=== PATIENT | female | born 1955 ===

== ENCOUNTER 2016-06-14 12:30 | Emergency (ER) | payer MEDICAID ==
[2016-06-14 12:30] VITALS: BMI 31.9
--- NOTE | 2016-06-14 13:39 | C.PDOC ---
History Of Present Illness Patient is a 60 y/o female, whose PMHx includes pancreatitis, recurrent pleural effusion, and depression, that presents to the ED for evaluation of occipital headache and right sided neck pain for the past 3 days. Pt states her pain is worse with head movement in either direction. Notes taking Motrin yesterday with no relief. Pt notes having similar symptoms in the past, and had MRI done 1 year ago showing abnormality, but no treatment was necessary at the time. Pt also reports few episodes of anterior chest pain that last for short duration. Otherwise, denies any fever, chills, nausea, vomiting, vision change, or any other associated symptoms at this time. Time Seen by Provider: 06/14/16 12:56 Chief Complaint (Nursing): Chest Pain History Per: Patient History/Exam Limitations: no limitations Onset/Duration Of Symptoms: Days (3) Current Symptoms Are (Timing): Still Present Quality: Aching, "Pain" Preceeding Symptoms: None. denies: Visual Disturbances Associated Symptoms: denies: Photophobia, Blurred Vision, Nausea, Vomiting, Extremity Weakness Recent travel outside of the [place]: No Additional History Per: Patient Past Medical History Reviewed: Historical Data, Nursing Documentation, Vital Signs Vital Signs: Last Vital Signs Temp 97.7 F 06/14/16 16:45 Pulse 77 06/14/16 16:45 Resp 16 06/14/16 16:45 BP 106/64 06/14/16 16:45 Pulse Ox 99 06/14/16 16:45 - Medical History PMH: Anxiety, Bronchitis, Depression, Gastritis, Gall Bladder Disease, Pancreatitis, Pneumonia (fluid in lungs removed 01/05), Pneumothorax Surgical History: Appendectomy, Cholecystectomy - [facility] Procedures CHOLECYSTECTOMY (12/27/13) FIBER-OPTIC BRONCHOSCOPY (01/04/14) INJECT/INFUSE ELECTROLYT (04/29/12) INJECT/INFUSE NEC (04/29/12) INSERT INTERCOSTAL CATH (01/04/14) INTRAOPER CHOLANGIOGRAM (12/27/13) MAGNETIC RESONANCE IMAGING OF BRAIN AND BRAIN STEM (01/15/13) NEBULIZER THERAPY (12/12/13) THORACENTESIS (01/04/14) THORACOSCOPIC DRAINAGE OF PLEURAL CAVITY (01/04/14) Family History: States: Stroke (Mother) - Social History Hx Tobacco Use: No Hx Alcohol Use: No Hx Substance Use: No Review Of Systems Except As Marked, All Systems Reviewed And Found Negative. Constitutional: Negative for: Fever, Chills Eyes: Negative for: Vision Change Cardiovascular: Positive for: Chest Pain. Negative for: Palpitations, Edema, Light Headedness Respiratory: Negative for: Cough, Shortness of Breath Gastrointestinal: Negative for: Nausea, Vomiting Musculoskeletal: Positive for: Neck Pain (right side). Negative for: Back Pain Neurological: Positive for: Headache. Negative for: Weakness, Numbness, Dizziness Physical Exam - Physical Exam Appears: Non-toxic, Other (In emotional distress) Skin: Normal Color, Warm, Dry Head: Atraumatic, Normacephalic Eye(s): bilateral: Normal Inspection, EOMI Neck: Normal ROM, No Midline Cervical Tenderness, Paracervical Tenderness (right ), Supple Chest: Symmetrical, No Tenderness Cardiovascular: Rhythm Regular, No Murmur Respiratory: Normal Breath Sounds, No Accessory Muscle Use, No Rales, No Rhonchi , No Wheezing Back: No Vertebral Tenderness, Muscle Spasm (right trapezius) Extremity: Normal ROM Neurological/Psych: Oriented x3, Normal Speech, Normal Cognition ED Course And Treatment O2 Sat by Pulse Oximetry: 98 (on RA) Pulse Ox Interpretation: Normal - Other Rad cspine X-Ray: Interpreted by Me (unremarkable) - CT Scan/US Head CT Other Rad Studies (CT/US): Read By Radiologist, Radiology Report Reviewed CT/US Interpretation: FINDINGS: HEMORRHAGE: No intracranial hemorrhage. BRAIN : No mass effect or edema. No evidence of large acute infarct. Mild generalized volume loss with more localized bifrontal cortical atrophic changes. Mild vascular calcifications are present suspect small arachnoid cyst right middle cranial fossa. VENTRICLES: Unremarkable. No hydrocephalus. CALVARIUM: Unremarkable. PARANASAL SINUSES: Unremarkable as visualized. No significant inflammatory changes. MASTOID AIR CELLS: Unremarkable as visualized. No inflammatory changes. OTHER FINDINGS: None. IMPRESSION: No acute intracranial hemorrhage. Suspect small arachnoid cyst right middle cranial fossa Progress Note: Head CT, EKG, CXR, and cervical spine x-ray ordered and reviewed. Patient was treated with Ativan IVP, and Toraol IM. Medical Decision Making Medical Decision Making: Post IV meds pt feeling 75% better anxious about pain returning Additionally treated with firocet Unremarkable testing results discussed with pt and SO No indication of SAH Plan dc home firocet Disposition - Disposition Referrals: Stan Chinchilla MD [Staff Provider] - Disposition: HOME/ ROUTINE Disposition Time: 16:18 Condition: GOOD Prescriptions: Acetaminophen/Butalbital/Caf [Fioricet] 1 tab PO TID #20 tab Instructions: Acute Headache (ED) - Clinical Impression Clinical Impression: Headache - Scribe Statement The provider has reviewed the documentation as recorded by the Hardyibe Rush Otero Provider Attestation: All medical record entries made by the Hardyibe were at my direction and personally dictated by me. I have reviewed the chart and agree that the record accurately reflects my personal performance of the history, physical exam, medical decision making, and the department course for this patient. I have also personally directed, reviewed, and agree with the discharge instructions and disposition.
--- NOTE | 2016-06-14 14:36 | CT ---
PROCEDURE: CT HEAD WITHOUT CONTRAST. HISTORY: Fall COMPARISON: None available. TECHNIQUE: Axial computed tomography images were obtained through the head/brain without intravenous contrast. Radiation dose: Total exam DLP = 829.57mGy-cm. This CT exam was performed using one or more of the following dose reduction techniques: Automated exposure control, adjustment of the mA and/or kV according to patient size, and/or use of iterative reconstruction technique. FINDINGS: HEMORRHAGE: No intracranial hemorrhage. BRAIN: No mass effect or edema. No evidence of large acute infarct. Mild generalized volume loss with more localized bifrontal cortical atrophic changes. Mild vascular calcifications are present suspect small arachnoid cyst right middle cranial fossa VENTRICLES: Unremarkable. No hydrocephalus. CALVARIUM: Unremarkable. PARANASAL SINUSES: Unremarkable as visualized. No significant inflammatory changes. MASTOID AIR CELLS: Unremarkable as visualized. No inflammatory changes. OTHER FINDINGS: None. IMPRESSION: No acute intracranial hemorrhage. Suspect small arachnoid cyst right middle cranial fossa
--- NOTE | 2016-06-14 14:39 | RAD ---
HISTORY: Hx plural effusion COMPARISON: 04/02/2015 TECHNIQUE: Chest PA and lateral FINDINGS: LUNGS: Poor inspiration with low lung volumes, mild crowded bronchovascular markings and mild bibasilar atelectasis PLEURA: No significant pleural effusion identified. No pneumothorax apparent. CARDIOVASCULAR: Cardiomegaly OSSEOUS STRUCTURES: No significant abnormalities. VISUALIZED UPPER ABDOMEN: Normal. OTHER FINDINGS: None. IMPRESSION: Poor inspiration with low lung volumes, mild crowded bronchovascular markings and mild bibasilar atelectasis Cardiomegaly
--- NOTE | 2016-06-14 14:42 | RAD ---
PROCEDURE: Cervical Spine Radiographs. Lateral open-mouth and AP view with slight extension of the calvarium obtained study. Note that the odontoid is incompletely visualized HISTORY: Pain. COMPARISON: None. FINDINGS: BONES: Alignment maintained. No fracture. Dens appears grossly intact so far as can be seen. DISC SPACES: Disc space heights maintained. Tiny marginal anterior osteophyte formation seen at several disc space levels. SOFT TISSUES: Normal. No prevertebral soft tissue swelling. OTHER FINDINGS: None. IMPRESSION: Slightly limited limited study as described. No evidence of acute fracture seen.
[2016-06-14] MEDS ORDERED: Apap-Butalbital-Caffeine 325-50-40mg Tab PO STA (16:15)
[2016-06-14] MEDS ORDERED: Apap-Butalbital-Caffeine 325-50-40mg Tab ONE (16:33)
[2016-06-14 16:46] VITALS: BP 106/64; PULSE 77; RESP 16; TEMP 97.7
--- NOTE | 2016-06-14 23:26 | CARD ---
APPROVED REPORT EKG Measurement Heart [id number] <Conclusion> Normal sinus rhythm Normal ECG
[2016-06-15 14:16] VITALS: O2SAT 98
== END 2016-06-14 16:55 | disposition home or self-care (01) ==
LOC: C.ER 12:30
DX: R51 Headache (principal)
CPT/HCPCS: 70450; 71020; 72040; 93005; 96372; 96374; 99285; J1885; J2060

== ENCOUNTER 2016-09-30 15:34 | Emergency (ER) | payer MEDICAID ==
[2016-09-30 15:34] VITALS: BMI 31.9
[2016-09-30 15:40] VITALS: TEMP 97.9
[2016-09-30] MEDS ORDERED: Oxycodone/Acetaminophen 5/325 mg Tab PO STA (16:53)
[2016-09-30 17:04] LABS: BASO # 0.1 K/uL (0.0-0.2); BASO % 0.9 % (0.0-2.0); EOS # 0.6 K/uL (0.0-0.7); EOS % 6.3 % (0.0-4.0); HEMATOCRIT 37.3 % (34.0-47.0); LYMPH # 2.5 K/uL (1.0-4.3); LYMPH % 27.4 % (20.0-40.0); MEAN CELL VOLUME 85.4 fL (81.0-99.0); MEAN PLATELET VOLUME 8.3 fL (7.2-11.7); MONO # 0.6 K/uL (0.0-0.8); MONO % 6.6 % (0.0-10.0); RED CELL DISTRIBUTION WIDTH 13.6 % (11.5-14.5)
[2016-09-30] MEDS ORDERED: Oxycodone/Acetaminophen 5/325 mg Tab ONE (17:05)
[2016-09-30 17:15] LABS: CHLORIDE 102 mmol/L (98-107); SODIUM 142 mmol/L (132-148)
[2016-09-30 17:16] LABS: POTASSIUM 4.2 mmol/L (3.6-5.2)
[2016-09-30 17:18] LABS: ALB/GLOB RATIO 1.4 (1.0-2.1); ALKALINE PHOSPHATASE 77 U/L (38-126); ALT/SGPT 34 U/L (9-52); AST/SGOT 27 U/L (14-36); BILIRUBIN,TOTAL 0.5 mg/dL (0.2-1.3); BLOOD UREA NITROGEN 9 mg/dL (7-17); CARBON DIOXIDE 25 mmol/L (22-30); GFR AFRICAN-AMERICAN > 60; GLUCOSE,RANDOM 93 mg/dL (65-105); TOTAL PROTEIN 7.5 g/dL (6.3-8.3)
[2016-09-30 17:19] LABS: CALCIUM 9.4 mg/dl (8.6-10.4)
[2016-09-30 17:47] VITALS: PULSE 74
[2016-09-30 17:50] VITALS: O2SAT 100
--- NOTE | 2016-09-30 17:50 | C.PDOC ---
History Of Present Illness 60 y/o female with Hx of Chiari malformation type 1 and Pancreatitis presents to ED for left sided neck and face pain with associated numbness to upper lip and twitching of right eye. Patient states she was diagnosed with malformation on a MRI at [facility] and was advised to have surgery but is in denial of following advise. Patient reports pain symptoms previously happened in August and has been taking Flexeril with no improvement. Patient also reports last night LUQ abdominal pain but resolved and has normal PO intake. No other complaints at this time. Time Seen by Provider: 09/30/16 16:43 Chief Complaint (Nursing): Weakness/Neurological Deficit History Per: Patient History/Exam Limitations: no limitations Onset/Duration Of Symptoms: Days Current Symptoms Are (Timing): Still Present Past Medical History Reviewed: Historical Data, Nursing Documentation, Vital Signs Vital Signs: Last Vital Signs Temp 97.9 F 09/30/16 15:36 Pulse 74 09/30/16 17:46 Resp 14 09/30/16 17:46 BP 110/66 09/30/16 17:46 Pulse Ox 100 09/30/16 17:53 - Medical History PMH: Anxiety, Bronchitis, Depression, Gastritis, Gall Bladder Disease, Pancreatitis, Pneumonia (fluid in lungs removed 01/05), Pneumothorax Surgical History: Appendectomy, Cholecystectomy - [facility] Procedures CHOLECYSTECTOMY (12/27/13) FIBER-OPTIC BRONCHOSCOPY (01/04/14) INJECT/INFUSE ELECTROLYT (04/29/12) INJECT/INFUSE NEC (04/29/12) INSERT INTERCOSTAL CATH (01/04/14) INTRAOPER CHOLANGIOGRAM (12/27/13) MAGNETIC RESONANCE IMAGING OF BRAIN AND BRAIN STEM (01/15/13) NEBULIZER THERAPY (12/12/13) THORACENTESIS (01/04/14) THORACOSCOPIC DRAINAGE OF PLEURAL CAVITY (01/04/14) Family History: States: Stroke (Mother) - Social History Hx Tobacco Use: No Hx Alcohol Use: No Hx Substance Use: No - Immunization History Hx Tetanus Toxoid Vaccination: No Hx Influenza Vaccination: No Hx Pneumococcal Vaccination: No Review Of Systems Except As Marked, All Systems Reviewed And Found Negative. Constitutional: Negative for: Fever, Chills Cardiovascular: Negative for: Chest Pain Respiratory: Negative for: Shortness of Breath Musculoskeletal: Positive for: Neck Pain Neurological: Positive for: Numbness. Negative for: Weakness, Headache Physical Exam - Physical Exam Appears: Non-toxic, No Acute Distress Skin: Normal Color, Warm, No Rash Head: Atraumatic Eye(s): bilateral: Normal Inspection, PERRL, EOMI Oral Mucosa: Moist Neck: Other (Tenderness to posterior neck) Chest: Symmetrical Cardiovascular: Rhythm Regular Respiratory: Normal Breath Sounds, No Rales, No Rhonchi, No Wheezing Gastrointestinal/Abdominal: Soft, No Tenderness, No Guarding, No Rebound Neurological/Psych: Oriented x3, Normal Speech, Normal Cognition, Normal Motor, Normal Sensation Gait: Steady ED Course And Treatment - Laboratory Results Result Diagrams: 09/30/16 17:00 09/30/16 17:00 Lab Interpretation: Normal O2 Sat by Pulse Oximetry: 100 (RA) Pulse Ox Interpretation: Normal Reevaluation Time: 18:46 Reassessment Condition: Improved (after po Percocet) - Physician Consult Information Physician Contacted: Stan Chinchilla Outcome Of Conversation: He reviewed his records and notes that patient does have a Chiari Type I malformation. Patient states that she was told that this has worsened and is advised to have surgery. She follow up with Dr Ladd for neurology. Medical Decision Making Medical Decision Making: Discussed with Dr. Chinchilla and was able to read neurologist report but is not managing problem with patient Disposition Counseled Patient/Family Regarding: Studies Performed, Diagnosis, Need For Followup, Rx Given - Disposition Referrals: Stan Chinchilla MD [Staff Provider] - Rosanna Garcia MD [Medical Doctor] - Disposition: HOME/ ROUTINE Disposition Time: 18:48 Condition: STABLE Prescriptions: Acetaminophen/Butalbital/Caf [Fioricet] 1 tab PO TID PRN #20 tab PRN Reason: Headache Cyclobenzaprine [Flexeril] 10 mg PO TID PRN #20 tab PRN Reason: Muscle Spasm Instructions: Chiari Malformation (GEN) Forms: [facility] (Lao) Print Language: GREENLANDIC - Clinical Impression Clinical Impression: Headache, Muscle spasms of neck, Chiari malformation - Scribe Statement The provider has reviewed the documentation as recorded by the Hardyibrosas Mcmanus All medical record entries made by the Scribe were at my direction and personally dictated by me. I have reviewed the chart and agree that the record accurately reflects my personal performance of the history, physical exam, medical decision making, and the department course for this patient. I have also personally directed, reviewed, and agree with the discharge instructions and disposition.
[2016-09-30 18:46] VITALS: BP 133/79; RESP 18
--- NOTE | 2016-10-13 20:30 | CARD ---
APPROVED REPORT EKG Measurement Heart [id number] <Conclusion> Normal sinus rhythm Normal ECG
== END 2016-09-30 19:11 | disposition home or self-care (01) ==
LOC: C.ER 15:34
DX: M62.838 Other muscle spasm (principal); R51 Headache; G93.5 Compression of brain

== ENCOUNTER 2017-03-25 18:45 | Emergency (ER) | payer MEDICAID ==
[2017-03-25 18:45] VITALS: BMI 31.9
[2017-03-25 19:03] VITALS: RESP 16; TEMP 98.3; O2SAT 98
--- NOTE | 2017-03-25 20:06 | C.PDOC ---
History Of Present Illness 61 y/o female c/o diffuse myalgias and subjective fevers for a few days. pt reports taking ibuprofen with no relief. occasional cough with pleuritic chest pain. Time Seen by Provider: 03/25/17 19:32 Chief Complaint (Nursing): Flu-like Symptoms History Per: Patient History/Exam Limitations: language barrier (tape calender woody #[id number]) Onset/Duration Of Symptoms: Days (4) Location Of Pain: Diffuse Myalgias Sick Contacts (Context): None Associated Symptoms: Fever, Chills, Cough. denies: Vomiting, Diarrhea Ear Symptoms: Bilateral: None Past Medical History Reviewed: Historical Data, Nursing Documentation, Vital Signs Vital Signs: Last Vital Signs Temp 98.3 F 03/25/17 18:59 Pulse 78 03/25/17 20:16 Resp 16 03/25/17 20:16 BP 130/68 03/25/17 20:16 Pulse Ox 98 03/25/17 22:40 - Medical History PMH: Anxiety, Bronchitis, Depression, Gastritis, Gall Bladder Disease, Pancreatitis, Pneumonia (fluid in lungs removed 01/05), Pneumothorax Surgical History: Appendectomy, Cholecystectomy - [facility] Procedures CHOLECYSTECTOMY (12/27/13) FIBER-OPTIC BRONCHOSCOPY (01/04/14) INJECT/INFUSE ELECTROLYT (04/29/12) INJECT/INFUSE NEC (04/29/12) INSERT INTERCOSTAL CATH (01/04/14) INTRAOPER CHOLANGIOGRAM (12/27/13) MAGNETIC RESONANCE IMAGING OF BRAIN AND BRAIN STEM (01/15/13) NEBULIZER THERAPY (12/12/13) THORACENTESIS (01/04/14) THORACOSCOPIC DRAINAGE OF PLEURAL CAVITY (01/04/14) Family History: States: Unknown Family Hx, Stroke (Mother) - Social History Hx Tobacco Use: No Hx Alcohol Use: No Hx Substance Use: No - Immunization History Hx Tetanus Toxoid Vaccination: No Hx Influenza Vaccination: No Hx Pneumococcal Vaccination: No Review Of Systems Constitutional: Positive for: Fever, Chills, Weakness, Malaise Respiratory: Positive for: Cough, Pleuritic Pain. Negative for: Shortness of Breath Gastrointestinal: Negative for: Abdominal Pain Skin: Negative for: Rash, Bruising Neurological: Negative for: Weakness, Numbness Physical Exam - Physical Exam Appears: Non-toxic, Other (uncomfortable) Skin: Warm, Dry Head: Atraumatic, Normacephalic Eye(s): bilateral: Normal Inspection Ear(s): Bilateral: Normal Oral Mucosa: Moist Throat: No Erythema, No Exudate Neck: Supple Chest: No Deformity, Tenderness (diffuse anterior and posterior chest wall tenderness) Cardiovascular: Rhythm Regular, No Murmur Respiratory: No Decreased Breath Sounds, No Accessory Muscle Use, No Wheezing Gastrointestinal/Abdominal: Soft, No Tenderness Back: No Vertebral Tenderness, Other (diffuse lower back tenderness bilaterally) Neurological/Psych: Oriented x3, Normal Speech, Normal Cognition, Normal Motor, Normal Sensation ED Course And Treatment O2 Sat by Pulse Oximetry: 98 Medical Decision Making Medical Decision Making: dioffuse myalgia, subjective fever. tx with nsaids. Disposition Counseled Patient/Family Regarding: Diagnosis, Need For Followup, Rx Given - Disposition Referrals: [facility] [Outside] Disposition: HOME/ ROUTINE Disposition Time: 20:10 Condition: STABLE Additional Instructions: Por favor alternar estrella Tylenol e Ibuprofeno cada 3 horas para los shell corporales y la fiebre Aumente la ingesta de lquidos, mantngase margie hidratado. Incrementa el reposo en cama. Brian un seguimiento con newman mdico o en la clnica mdica en unos herrera. .Please alternate taking Tylenol and Ibuprofen every 3 hours for body pains and fever Increase fluid intake, stay welll hydrated. Increase bed rest. Follow up wiht your doctor or in medical clinic in a few days. . Prescriptions: Ibuprofen [Motrin] 600 mg PO TID #30 tab Instructions: Viral Syndrome (ED) Forms: Gen Discharge Inst Irish, [facility] (Irish) Print Language: GREEK - Clinical Impression Clinical Impression: Influenza-like illness
[2017-03-25 20:17] VITALS: BP 130/68; PULSE 78
== END 2017-03-25 20:16 | disposition home or self-care (01) ==
LOC: C.ER 18:45
DX: J11.1 Influenza due to unidentified influenza virus with other respiratory manifestations (principal)
CPT/HCPCS: 96372; 99283; J1885